=== PATIENT | male | born 1935 | race Caucasian/White ===

== ENCOUNTER 2018-02-11 12:55 | Emergency (ER) | payer MEDICARE, OTHER ==
[~2018-02-11] VITALS: Ht 175.3 cm; Wt 65.3 kg
[~2018-02-11 12:55] MED LIST: ASPI-650 PO; ATOR40TA78 PO; FINA5TAB4 PO; FLUD0.1T PO; PRAV20TA PO; PRAV20TA2 PO
[2018-02-11 12:57] VITALS: BP 140/74
[2018-02-11] MEDS ORDERED: METO25TA35 PO (13:47)
== END 2018-02-11 14:00 | disposition home or self-care (01) ==
LOC: ED 13:54
DX: L03.115 Cellulitis of right lower limb (principal); E78.00 Pure hypercholesterolemia, unspecified
CPT/HCPCS: 99283

== ENCOUNTER → 2018-02-13 | Outpatient (CLI) | payer MEDICARE, OTHER ==
[~2018-02-13] MED LIST changes: +METO25TA35 PO; +REGADENOSON 0.4 MG/5 ML SYRINGE ONE
== END ==
LOC: CFH 09:00
PROVIDERS: ATTEND Internal Medicine Cardiovascular Disease
DX: I47.2 Ventricular tachycardia (principal); R55 Syncope and collapse
CPT/HCPCS: 78452; 93017; A9502; J2785

== ENCOUNTER 2019-02-02 09:25 | Outpatient (CLI) | payer MEDICARE, OTHER ==
[~2019-02-02 09:25] MED LIST changes: -REGADENOSON 0.4 MG/5 ML SYRINGE ONE
== END 2019-02-02 23:59 | disposition home or self-care (01) ==
LOC: CVU 09:25
PROVIDERS: ATTEND Registered Nurse
DX: I65.23 Occlusion and stenosis of bilateral carotid arteries (principal)
CPT/HCPCS: 93880